=== PATIENT | male | born 1990 | race Asian ===

== ENCOUNTER → 2023-08-26 | Outpatient (CLI) | payer OTHER ==
[2023-08-29 08:47] LABS: HEPATITIS B SURFACE ANTIBODY <3.10 IU/L
[2023-08-29 09:22] LABS: HIV 1,2 COMBO ANTIGEN/ANTIBODY Negative (Negative)
[2023-08-29 09:41] LABS: HEPATITIS B SURFACE ANTIGEN Positive (Negative)
== END ==
LOC: LAB SHORT 17:49 → LAB 17:49
PROVIDERS: Physician Assistant Medical
DX: Z20.9 Contact with and (suspected) exposure to unspecified communicable disease (principal)
CPT/HCPCS: 84460; 87340; 87389